=== PATIENT | female | born 1995 | race Caucasian/White ===

== ENCOUNTER 2022-02-08 09:57 | Outpatient (CLI) | payer BC | END 2022-02-08 09:58 | disposition home or self-care (01) | LOC: CSHLAB 09:57 | PROVIDERS: ATTEND Advanced Practice Midwife | DX: Z20.822 Contact with and (suspected) exposure to COVID-19 (principal) | CPT/HCPCS: 87811 ==

== ENCOUNTER 2022-02-10 05:30 | Inpatient (IN) | payer BC ==
[2022-02-10 05:57] VITALS: BMI 30.3
[2022-02-10] MEDS ORDERED: NS w/ Oxytocin 30 units 500 ML ONE (07:03)
[2022-02-10] MEDS ORDERED: Methylergonovine 0.2 MG/ML VIAL IM PRN (07:07)
[2022-02-10] MEDS ORDERED: Ondansetron PF 4 MG/2 ML Vial IVP PRN ×2 (07:07→10:10)
[2022-02-10] MEDS ORDERED: Misoprostol 200 MCG TAB PR PRN (07:07)
[2022-02-10] MEDS ORDERED: Lidocaine 1% (PF) 30 ML VIAL SC PRN (07:07)
[2022-02-10] MEDS ORDERED: hydrALAZINE 20 MG/ML VIAL SLOW IVP PRN ×2 (07:07→14:34)
[2022-02-10] MEDS ORDERED: Ibuprofen 800 MG TAB PO PRN (07:07)
[2022-02-10] MEDS ORDERED: Promethazine HCl 25 MG/ML VIAL IM PRN ×2 (07:07→10:10)
[2022-02-10] MEDS ORDERED: Butorphanol Tartrate 1 MG/ML VIAL SLOW IVP PRN (07:07)
[2022-02-10] MEDS ORDERED: HYDROcodone/Acetaminophen 5/325 mg Tablet PO PRN ×4 (07:07→14:34)
[2022-02-10] MEDS ORDERED: Lactated Ringer's 1,000 ML IV SCH (07:15)
[2022-02-10] MEDS ORDERED: NS w/ Oxytocin 30 units 500 ML IV SCH ×3 (07:15→14:34)
[2022-02-10 07:52] LABS: Hemoglobin 10.4 g/dL (12.0-15.5); Mean Corpuscular HGB CONC 33.5 g/dL (32.0-36.0); Mean Corpuscular Hemoglobin 27.4 pg (27.0-33.0); Mean Corpuscular Volume 81.8 fl (81.6-98.3); Mean Platelet Volume 10.3 fl (7.4-10.4); Platelet Count 245 10x3/uL (150-450); RBC Distribution Width 14.6 % (11.5-14.5); Red Blood Cell (RBC) Count 3.79 10x6/uL (3.90-5.03)
[2022-02-10] MEDS ORDERED: Bupivacaine/Epinephrine 0.25% 30 ML VIAL ONE (08:00)
[2022-02-10 08:42] LABS: Hep B Surf Ag Non-Reactive S/CO (NonReactive); Syphilis Antibody Nonreactive (Nonreactive); Syphilis Antibody Index 0.08 S/CO (<1.00 Non-Reactive)
[2022-02-10 08:59] LABS: HBSAg Index 0.19 S/CO (0-0.99)
[2022-02-10] MEDS ORDERED: Fentanyl 2 mcg/Bup 0.1% Cadd 100 ML ONE (09:40)
[2022-02-10] MEDS ORDERED: Lactated Ringer's 500 ML IV PRN (09:47)
[2022-02-10] MEDS ORDERED: diphenhydrAMINE 50 MG/ML VIAL IVP PRN (10:10)
[2022-02-10] MEDS ORDERED: Naloxone HCl 0.4 mg/ml Vial IVP PRN ×2 (10:10)
[2022-02-10] MEDS ORDERED: Moisturizing Cream (Eucerin) 113 GM JAR TOP PRN (10:10)
[2022-02-10] MEDS ORDERED: Acetaminophen 325 MG TAB PO PRN (10:10)
[2022-02-10] MEDS ORDERED: ePHEDrine Sulfate 50 MG/10 ML VIAL SLOW IVP PRN (10:10)
[2022-02-10] MEDS ORDERED: Communication Order-Pharmacy FS SCH (10:15)
[2022-02-10] MEDS ORDERED: Fentanyl 2 mcg/Bupivacaine 0.1% Cassette 100 ML EPIDURAL SCH (10:15)
[2022-02-10] MEDS ORDERED: Misoprostol 200 MCG TAB VAG PRN (14:34)
[2022-02-10] MEDS ORDERED: Benzocaine-Menthol 82.5 ML CAN TOP PRN (14:34)
[2022-02-10] MEDS ORDERED: Bisacodyl 10 MG SUPP PR PRN (14:34)
[2022-02-10] MEDS ORDERED: Boostrix 0.5 ML (Tdap) VIAL IM ONE (14:34)
[2022-02-10] MEDS ORDERED: Milk Of Magnesia 30 ML UDCUP PO PRN (14:34)
[2022-02-10] MEDS: Ferrous Sulfate 325 MG TAB PO SCH (17:37)
[2022-02-10] MEDS: Ibuprofen 800 MG TAB PO SCH ×2 (17:37→21:14)
[2022-02-10] MEDS: Docusate 100 MG CAP PO SCH (21:14)
[2022-02-11] MEDS: Ibuprofen 800 MG TAB PO SCH ×2 (05:22→13:37)
[2022-02-11] MEDS: Ferrous Sulfate 325 MG TAB PO SCH (07:11)
[2022-02-11] MEDS: Docusate 100 MG CAP PO SCH (08:07)
[2022-02-11] MEDS ORDERED: Prenatal Vitamin 1 TAB PO SCH (09:00)
[2022-02-11 11:28] VITALS: BP 108/63; TEMP 98.6
== END 2022-02-11 15:25 | disposition home or self-care (01) | DRG 807 ==
LOC: CSHLD 05:35 → UNDOADMIN 05:35 → CSHLD 09:47 → UNDODISIN 09:47 → CSHPP 15:23
PROVIDERS: ADMIT Student in an Organized Health Care Education/Training Program; ATTEND Student in an Organized Health Care Education/Training Program
PROC: 10E0XZZ Delivery of Products of Conception, External Approach (ICD-10-PCS; principal; 2022-02-10)
PROC: 10907ZC Drainage of Amniotic Fluid, Therapeutic from Products of Conception, Via Natural or Artificial Opening (ICD-10-PCS; 2022-02-10)
PROC: 0UQMXZZ Repair Vulva, External Approach (ICD-10-PCS; 2022-02-10)
DX: O70.0 First degree perineal laceration during delivery (principal); Z37.0 Single live birth; Z3A.40 40 weeks gestation of pregnancy; Z88.0 Allergy status to penicillin; Z88.2 Allergy status to sulfonamides; Z20.822 Contact with and (suspected) exposure to COVID-19
CPT/HCPCS: 51702; 85027; 86780; 86850; 86900; 86901; 87340; 87811; J2590; J7120